=== PATIENT | male | born 1960 | race Caucasian/White ===

== ENCOUNTER 2024-06-10 19:25 | Inpatient (IN) | payer OTHER ==
[2024-06-10 20:26] VITALS: BMI 29.8
[2024-06-10] MEDS ORDERED: NALOXONE (NYS OPIOID OVERDOSE PROGRAM) 4 MG/0.1 ML SPRAY NS PRN (20:48)
[2024-06-10] MEDS ORDERED: NALOXONE (NARCAN) HCL 4 MG/0.1 ML SPRAY NS PRN (20:48)
[2024-06-10] MEDS ORDERED: MAGNESIUM HYDROX 2400MG/30ML ORAL SUSPENSION 30 ML CUP PO PRN (20:48)
[2024-06-10] MEDS ORDERED: POLYETHYLENE GLYCOL (HEALTHYLAX) 3350 17 GM PACKET PO PRN (20:48)
[2024-06-10] MEDS ORDERED: guaiFENesin 600 MG TABLET.ER (FP) PO PRN (20:48)
[2024-06-10] MEDS ORDERED: BISMUTH SUBSALICYLATE 524 MG/30 ML PO PRN (20:48)
[2024-06-10] MEDS ORDERED: MAG HYDROX/AL HYDROX/SIMETH 30 ML UNIT-DOSE CUP PO PRN (20:48)
[2024-06-10] MEDS ORDERED: BENZONATATE 200 MG CAPSULE PO PRN (20:48)
[2024-06-10] MEDS ORDERED: BENZOCAINE/MENTHOL (CHLORASEPTIC ) LOZENGE MM PRN (20:48)
[2024-06-10] MEDS ORDERED: ONDANSETRON *ODT* 4 MG TABLET SL PRN (20:48)
[2024-06-10] MEDS ORDERED: DICYCLOMINE HCL 10 MG CAPSULE PO PRN (20:48)
[2024-06-10] MEDS ORDERED: IBUPROFEN 400 MG TABLET (FP) PO PRN (20:48)
[2024-06-10] MEDS ORDERED: IBUPROFEN 600 MG TABLET (FP) PO PRN (20:48)
[2024-06-10] MEDS ORDERED: LOPERAMIDE HCL 2 MG CAPSULE PO PRN (20:48)
[2024-06-10] MEDS: MELATONIN 5 MG TABLETS PO SCH (22:57)
[2024-06-10] MEDS: ASPIRIN 325 MG ENTERIC COATED TABLET (FP) PO SCH (22:57)
[2024-06-10] MEDS: CEPHALEXIN MONOHYDRATE 500 MG CAPSULE (UD) PO SCH (22:57)
[2024-06-10] MEDS: SACUBITRIL/VALSARTAN 24 MG-26 MG TABLET PO SCH (22:57)
[2024-06-10] MEDS: APIXABAN 5 MG TABLET PO SCH (22:57)
[2024-06-10] MEDS: THIAMINE 100 MG TABLET PO SCH (22:57)
[2024-06-10] MEDS: diazePAM 5 MG TABLET PO SCH (22:57)
[2024-06-10] MEDS: ACETAMINOPHEN 325 MG TABLET (FP) PO PRN (23:00)
[2024-06-11] MEDS: diazePAM 5 MG TABLET PO SCH (05:24)
[2024-06-11] MEDS: PANTOPRAZOLE 20 MG TABLET PO SCH (07:22)
[2024-06-11] MEDS ORDERED: ALBUTEROL SO4 HFA INHALER IH PRN (09:04)
[2024-06-11] MEDS: diazePAM 5 MG TABLET PO PRN (10:34)
[2024-06-11] MEDS: FOLIC ACID 1 MG TABLET (FP) PO SCH (10:35)
[2024-06-11] MEDS: PRENATAL VITAMINS W/ FOLIC ACID TABLET (FP) PO SCH (10:35)
[2024-06-11] MEDS: ASPIRIN 81 MG CHEWABLE TABLETS PO SCH (10:35)
[2024-06-11] MEDS: METHOCARBAMOL 500 MG TABLET PO PRN (10:37)
[2024-06-11] MEDS: FUROSEMIDE 20 MG TABLET (FP) PO SCH (10:37)
[2024-06-11] MEDS: methaDONE HCL 10 MG TABLET PO SCH (10:37)
[2024-06-11] MEDS: EMPAGLIFLOZIN (JARDIANCE) 10 MG TABLET PO SCH (10:55)
[2024-06-11] MEDS: AMIODARONE HCL 200 MG TABLET PO SCH (10:55)
[2024-06-11] MEDS: ISOSORBIDE MONONITRATE 30 MG TAB.SR.24H (FP) PO SCH (10:55)
[2024-06-11] MEDS: FLUTICASONE/UMECLIDIN/VILANTER(200-62.5-25 TRELEGY ELLIPTA) INAHLER IH SCH (10:55)
[2024-06-11 12:03] LABS: HEMATOCRIT 33.5 % (35.4-49); HEMOGLOBIN 10.9 GM/dL (11.7-16.9); MCH 28.3 pg (25.7-33.7); MCHC 32.5 g/dl (32.0-35.9); MEAN CELL VOLUME 87.2 fl (80-96); MEAN PLT VOLUME 7.7 fl (7.5-11.1); PLATELET COUNT 167 10^3/uL (134-434); RBC 3.84 M/mm3 (4.00-5.60); RDW 18.5 % (11.9-15.9); WHITE BLOOD COUNT 2.8 K/mm3 (4.0-10.0)
[2024-06-11 12:50] LABS: POTASSIUM 4.4 mmol/L (3.5-5.1)
[2024-06-11 12:52] LABS: ALBUMIN 3.2 g/dl (3.4-5.0); CALCIUM 8.9 mg/dL (8.5-10.1)
[2024-06-11 12:53] LABS: BLOOD UREA NITROGEN 45.8 mg/dL (7-18)
[2024-06-11 12:56] LABS: CREATININE 2.5 mg/dL (0.55-1.3)
[2024-06-11 12:57] LABS: BILIRUBIN,TOTAL 0.5 mg/dL (0.2-1); TOT PROT 6.1 g/dl (6.4-8.2)
[2024-06-11] MEDS: ATORVASTATIN CA 80 MG TABLET (FP) PO SCH (22:12)
[2024-06-12] MEDS: diazePAM 5 MG TABLET PO SCH (05:35)
[2024-06-12 15:23] LABS: POTASSIUM 4.3 mmol/L (3.5-5.1)
[2024-06-12 15:26] LABS: BLOOD UREA NITROGEN 43.9 mg/dL (7-18); CALCIUM 8.8 mg/dL (8.5-10.1)
[2024-06-13] MEDS: diazePAM 5 MG TABLET PO ONE (05:23)
[2024-06-13 09:22] VITALS: BP 149/91; PULSE 85; RESP 16; TEMP 97.1
== END 2024-06-13 11:22 | disposition other institution (70) | DRG 773 ==
LOC: YASAS 19:25 → Y3N 21:18
PROVIDERS: ADMIT Allergy & Immunology; ATTEND Surgery
PROC: HZ2ZZZZ Detoxification Services for Substance Abuse Treatment (ICD-10-PCS; principal; 2024-06-11)
DX: F10.230 Alcohol dependence with withdrawal, uncomplicated (principal); F11.20 Opioid dependence, uncomplicated; F17.210 Nicotine dependence, cigarettes, uncomplicated; E78.5 Hyperlipidemia, unspecified; I11.0 Hypertensive heart disease with heart failure; I50.9 Heart failure, unspecified; I48.91 Unspecified atrial fibrillation; J45.20 Mild intermittent asthma, uncomplicated; M19.90 Unspecified osteoarthritis, unspecified site; R79.89 Other specified abnormal findings of blood chemistry; Z79.01 Long term (current) use of anticoagulants; Z99.89 Dependence on other enabling machines and devices
CPT/HCPCS: 36415; 80048; 80053; 80305; 85027; 86780; 87811; 93005; 93010